=== PATIENT | female | born 2000 | race Two or more races ===

== ENCOUNTER 2020-01-29 09:43 | Emergency (ER) | payer MEDICAID, OTHER ==
--- NOTE | 2020-01-29 10:03 | EDM.PDOC ---
ED HPI GENERAL MEDICAL PROBLEM - General Chief Complaint: Abdominal Pain Stated Complaint: URINATING BLOOD Time Seen by Provider: 01/29/20 09:57 Source of Information: Reports: Patient History Limitations: Reports: No Limitations - History of Present Illness INITIAL COMMENTS - FREE TEXT/NARRATIVE: HISTORY AND PHYSICAL: History of present illness: Patient is a 19-year-old female who presents to the emergency room with complaints of hematuria and dysuria. She states she recently had a bladder infection which had these same symptoms approximately 1 month ago but believes she "never fully got rid of it". Symptoms reappeared 2 days ago. States there is a chance of . Patient denies any fever, chills, headache, change in vision, syncope or near syncope. Denies any chest pain, flank/back pain, shortness of breath or cough. Denies any abdominal pain, nausea, vomiting, diarrhea, constipation or dysuria. Has not noted any blood in urine or stool. Patient has been eating and drinking appropriately. Review of systems: As per history of present illness and below otherwise all systems reviewed and negative. Past medical history: As per history of present illness and as reviewed below otherwise noncontributory. Surgical history: As per history of present illness and as reviewed below otherwise noncontributory. Social history: See social history for further information Family history: As per history of present illness and as reviewed below otherwise noncontributory. Physical exam: General: Well-developed and well-nourished 19-year-old female. Alert and oriented. Nontoxic-appearing and in no acute distress. Vital signs are stable and have been reviewed by me. HEENT: Atraumatic, normocephalic, pupils equal and reactive bilaterally, negative for conjunctival pallor or scleral icterus, mucous membranes moist, TMs normal bilaterally, throat clear, neck supple, nontender, trachea midline. No drooling or trismus noted. No meningeal signs. No hot potato voice noted. Lungs: Clear to auscultation, breath sounds equal bilaterally, chest nontender. Heart: S1S2, regular rate and rhythm without overt murmur Abdomen: Soft, nondistended, nontender. Negative for masses or hepatosplenomegaly. Negative for costovertebral tenderness. Pelvis: Stable. Mild suprapubic tenderness. Skin: Intact, warm, dry. No lesions or rashes noted. Extremities: Atraumatic, moves all extremities per self without difficulty or deficits, negative for cords or calf pain. Neurovascular unremarkable. Neuro: Awake, alert, oriented. Cranial nerves II through XII unremarkable. Cerebellum unremarkable. Motor and sensory unremarkable throughout. Exam nonfocal. Notes: Patient is appropriate for outpatient antibiotic therapy. She is afebrile and drinking fluids appropriately. She has no flank pain or difficulty urinating. We discussed signs and symptoms that would prompt her to return to the emergency room. I also encouraged her to follow-up with her primary care provider for reevaluation. Follow-up, medication and supportive care measures were reviewed and discussed. Voices understanding and is agreeable to plan of care. Denies any further questions or concerns at this time. Diagnostics: UA, hCG U Therapeutics: Cipro, Pyridium Prescription: Cipro, Pyridium Impression: UTI Plan: 1. Your urine shows that you have a bladder infection. We have added a urine culture onto your labs, we may call you if the antibiotic you are placed on needs to be changed. Please continue to monitor your symptoms. If your symptoms should worsen, new symptoms develop or any of the signs and symptoms we discussed should arise please return to the emergency room or call 911 (if needed). 2. Take the antibiotic as directed. Increase your fluids. 3. You can alternate Tylenol and ibuprofen as needed for pain and fever management. Pyridium for discomfort of urinating. 4. Please follow-up with your primary care provider as we discussed. Definitive disposition and diagnosis as appropriate pending reevaluation and review of above. abdominal Pain Score (Numeric/FACES): 9 - Related Data Allergies Allergy/AdvReac Type Severity Reaction Status Date / Time No Known Allergies Allergy Verified 01/29/20 09:59 Home Meds: Home Meds Ciprofloxacin HCl [Cipro] 500 mg PO BID 5 Days #10 tablet 01/29/20 [Rx] Phenazopyridine HCl [Pyridium] 100 mg PO TID 2 Days #6 tablet 01/29/20 [Rx] traMADol [Ultram] 50 mg PO Q4H PRN #10 tab 01/29/20 [Rx] ED ROS GENERAL - Review of Systems Review Of Systems: Comprehensive ROS is negative, except as noted in HPI. ED EXAM, RENAL/ - Physical Exam Exam: See Below (See dictation) Course - Vital Signs Last Recorded V/S: Last Vital Signs Temp 97.8 F 01/29/20 09:56 Pulse 82 01/29/20 09:56 Resp 18 01/29/20 09:56 BP 122/63 01/29/20 09:56 Pulse Ox 98 01/29/20 09:56 - Orders/Labs/Meds Orders: Active Orders 24 hr Category Date Time Status CULTURE URINE [RM] Stat Lab 01/29/20 10:11 Received Labs: Laboratory Tests 01/29/20 01/29/20 Range/Units 10:11 10:11 Urine Color YELLOW Urine Appearance BLOODY Urine pH 7.5 (5.0-8.0) Ur Specific [place] 1.025 (1.001-1.035) Urine Protein 100 H (NEGATIVE) mg/dL Urine Glucose (UA) NEGATIVE (NEGATIVE) mg/dL Urine Ketones TRACE H (NEGATIVE) mg/dL Urine Occult Blood LARGE H (NEGATIVE) Urine Nitrite POSITIVE H (NEGATIVE) Urine Bilirubin NEGATIVE (NEGATIVE) Urine Urobilinogen 1.0 (<2.0) EU/dL Ur Leukocyte Esterase SMALL H (NEGATIVE) Urine RBC TOO NUMEROUS TO CT H (0-2/HPF) Urine WBC 0-4 (0-5/HPF) Ur Epithelial Cells RARE (NONE-FEW) Urine Bacteria 1+ H (NEGATIVE) Urine HCG, Qual NEGATIVE (NEGATIVE) Meds: Medications Discontinued Medications Generic Name Dose Route Start Last Admin Trade Name Freq PRN Reason Stop Dose Admin Ciprofloxacin 500 mg 01/29/20 10:19 Ciprofloxacin Hcl PO 01/29/20 10:20 ONETIME ONE Phenazopyridine HCl 200 mg 01/29/20 10:19 Pyridium PO 01/29/20 10:20 ONETIME ONE Departure - Departure Time of Disposition: 10:23 Disposition: Home, Self-Care 01 Clinical Impression: UTI (urinary tract infection) Qualifiers: Urinary tract infection type: acute cystitis Hematuria presence: with hematuria Qualified Code(s): N30.01 - Acute cystitis with hematuria - Discharge Information Prescriptions: Ciprofloxacin HCl [Cipro] 500 mg PO BID 5 Days #10 tablet Phenazopyridine HCl [Pyridium] 100 mg PO TID 2 Days #6 tablet traMADol [Ultram] 50 mg PO Q4H PRN #10 tab PRN Reason: Pain Instructions: Urinary Tract Infection, Adult, [id number] Referrals: PCP,None [Primary Care Provider] - Forms: ED Department Discharge Additional Instructions: The following information is given to patients seen in the emergency department who are being discharged to home. This information is to outline your options for follow-up care. We provide all patients seen in our emergency department with a follow-up referral. The need for follow-up, as well as the timing and circumstances, are variable depending upon the specifics of your emergency department visit. If you don't have a primary care physician on staff, we will provide you with a referral. We always advise you to contact your personal physician following an emergency department visit to inform them of the circumstance of the visit and for follow-up with them and/or the need for any referrals to a consulting specialist. The emergency department will also refer you to a specialist when appropriate. This referral assures that you have the opportunity for follow-up care with a specialist. All of these measure are taken in an effort to provide you with optimal care, which includes your follow-up. Under all circumstances we always encourage you to contact your private ysician who remains a resource for coordinating your care. When calling for follow-up care, please make the office aware that this follow-up is from your recent emergency room visit. If for any reason you are refused follow-up, please contact the [facility] Emergency Department at and asked to speak to the emergency department charge nurse. [facility] [address] [place] [address] [place] [address] Thank you for choosing the [facility] emergency department in [place] for your medical needs today. It was a pleasure caring for you. You were seen in the emergency department for bladder infection. 1. Your urine shows that you have a bladder infection. We have added a urine culture onto your labs, we may call you if the antibiotic you are placed on needs to be changed. Please continue to monitor your symptoms. If your symptoms should worsen, new symptoms develop or any of the signs and symptoms we discussed should arise please return to the emergency room or call 911 (if needed). 2. Take the antibiotic as directed. Increase your fluids. 3. You can alternate Tylenol and ibuprofen as needed for pain and fever management. Pyridium for discomfort of urinating. 4. Please follow-up with your primary care provider as we discussed. Sepsis Event Note (ED) - Evaluation Sepsis Screening Result: No Definite Risk - Focused Exam Vital Signs: Vital Signs Temp Pulse Resp BP Pulse Ox 01/29/20 09:56 97.8 F 82 18 122/63 98 - My Orders Last 24 Hours: My Active Orders 01/29/20 10:11 CULTURE URINE [RM] Stat - Assessment/Plan Last 24 Hours: My Active Orders 01/29/20 10:11 CULTURE URINE [RM] Stat
[2020-01-29] MEDS ORDERED: Ciprofloxacin 500 MG Tab PO ONE (10:19)
[2020-01-29] MEDS ORDERED: Phenazopyridine 200 MG Tab PO ONE (10:19)
== END 2020-01-29 10:51 | disposition home or self-care (01) ==
LOC: MW.ED 09:43
DX: N30.01 Acute cystitis with hematuria (principal)
CPT/HCPCS: 81001; 81025; 87086; 87088; 87186; 99283; A9270